=== PATIENT | male | born 1975 | race Two or more races ===

== ENCOUNTER → 2019-12-12 | Outpatient (CLI) | payer OTHER ==
--- NOTE | 2019-12-12 13:11 | Diagnostic Imaging Report ---
EXAM: US ABDOMEN COMPLETE DATE: 12/12/2019 9:50 AM INDICATION: Diverticulitis COMPARISON: None TECHNIQUE: Transverse and longitudinal cedeno scale and color doppler sonographic images of the upper abdomen were obtained. FINDINGS: LIVER 11.3 cm in the right midclavicular line. Increased echogenicity of the liver with normal contour, no masses. SPLEEN 8.2 cm in maximum diameter. Normal echogenicity, no masses. GALLBLADDER No gallbladder wall thickening, distension, stone, or pericholecystic fluid. Negative reported sonographic Cruz's sign. The gallbladder wall measures 2mm BILE DUCTS No intra nor extra-hepatic biliary dilation. Common bile duct measures 3mm PANCREAS: Visualized portions are normal. RIGHT KIDNEY: 9.3 cm Echogenicity: Normal Collecting System: No hydronephrosis Stones: None Cyst/Mass: None LEFT KIDNEY: 10.0 cm Echogenicity: Normal Collecting System: No hydronephrosis Stones: None Cyst/Mass: None VESSELS: Aorta: Visualized portions are within normal size limits Inferior Vena Cava: Visualized portions are normal Main Portal Vein: 1.1 cm, normal size with hepatopetal flow. FREE FLUID: None IMPRESSION: Mild diffuse hepatic steatosis. Otherwise, no acute findings. Signed by: Shantal Segura MD on 12/12/2019 1:07 PM
== END ==
LOC: US 09:39
PROVIDERS: ATTEND Internal Medicine
DX: K57.92 Diverticulitis of intestine, part unspecified, without perforation or abscess without bleeding (principal); K76.0 Fatty (change of) liver, not elsewhere classified
CPT/HCPCS: 76700